=== PATIENT | male | born 1935 | race Caucasian/White ===

== ENCOUNTER 2017-10-12 06:58 | Day surgery (SDC) | payer MEDICARE, BC ==
[~2017-10-12] VITALS: Ht 188 cm; Wt 119.6 kg
[~2017-10-12 06:58] MED LIST: ALEVE 220MG220 MG PO; ASPIRIN E.C. 8181 MG PO; CELEBREX 200MG200 MG PO; CLARITIN 1010 MG/TAB PO; CO Q-1050 MG PO; COUMADIN4 MG PO; CRESTOR 10MG10 MG PO; DULCOLAX S10 MG/SUPP RC; LOPID 600M600 MG/TAB PO; LOPRESSOR 225 MG/TAB PO; MILK OF MA400 MG/5 M PO; NORCO 325 MG-7.1 TAB PO; OMEGA 31000 MG PO; SENOKOT8.6 MG PO; TYLENOL EXTRA500 M1 PO; ULTRAM 50MG TAB50 MG PO
[2017-10-12 07:20] VITALS: BP 146/83; PULSE 65; TEMP 97.1
[2017-10-12] MEDS ORDERED: ASPIRIN 81M81 MG/TA2 PO (07:47)
[2017-10-12] MEDS ORDERED: FLOMAX 0.40.4 MG/CAP PO (07:48)
[2017-10-12] MEDS ORDERED: THE MEDICINE S200 M2 PO (07:48)
[2017-10-12 07:49] LABS: CALCIUM 9.8 mg/dL (8.4-10.2); CREATININE, serum 1.68 mg/dL (0.66-1.25); POTASSIUM 4.3 mmol/L (3.4-5.0)
[2017-10-12] MEDS ORDERED: PERCOCET 325 MG1 TA2 PO (07:49)
[2017-10-12] MEDS ORDERED: ALEVE 220MG220 MG PO (07:49)
[2017-10-12] MEDS ORDERED: INVOKAMET4 PO (07:50)
[2017-10-12] MEDS ORDERED: GLUCOPHAGE500 MG/TAB PO (07:50)
[2017-10-12 11:45] VITALS: BP 101/55; PULSE 66; TEMP 97.5
[2017-10-12 12:00] VITALS: BP 110/61; PULSE 66
[2017-10-12 12:15] VITALS: BP 117/67; PULSE 63
== END 2017-10-12 12:50 | disposition home or self-care (01) ==
LOC: SDCO 06:58
PROVIDERS: Nurse Anesthetist, Certified Registered
DX: N20.1 Calculus of ureter (principal); E11.9 Type 2 diabetes mellitus without complications; K21.9 Gastro-esophageal reflux disease without esophagitis; E78.5 Hyperlipidemia, unspecified; I10 Essential (primary) hypertension; I25.2 Old myocardial infarction; I25.10 Atherosclerotic heart disease of native coronary artery without angina pectoris; M19.90 Unspecified osteoarthritis, unspecified site; Z95.1 Presence of aortocoronary bypass graft; Z79.84 Long term (current) use of oral hypoglycemic drugs; Z96.642 Presence of left artificial hip joint; Z96.651 Presence of right artificial knee joint; Z82.49 Family history of ischemic heart disease and other diseases of the circulatory system
CPT/HCPCS: C1726; C1769; C2617; J0690; J2405; J2704; J3010; J7120; Q9967

== ENCOUNTER 2018-03-31 11:46 | Inpatient (IN) | payer MEDICARE, BC ==
[~2018-03-31] VITALS: Ht 188 cm; Wt 117.2 kg
[~2018-03-31 11:46] MED LIST changes: +ASPIRIN 81M81 MG/TA2 PO; +FLOMAX 0.40.4 MG/CAP PO; +GLUCOPHAGE500 MG/TAB PO; +INVOKAMET4 PO; +PERCOCET 325 MG1 TA2 PO; +THE MEDICINE S200 M2 PO
[2018-03-31 15:57] VITALS: BP 167/70; PULSE 46; TEMP 97.7
[2018-03-31] MEDS ORDERED: LIPITOR 80MG80 MG PO (16:36)
[2018-03-31] MEDS ORDERED: PLAVIX 75MG TAB75 MG PO (16:37)
[2018-03-31 18:00] VITALS: BP 167/70; PULSE 46; TEMP 97.7
[2018-04-01 06:22] VITALS: BP 170/85; PULSE 80; TEMP 98.4
[2018-04-01 17:21] VITALS: BP 171/92; PULSE 55; TEMP 98.4
[2018-04-02 06:08] VITALS: BP 152/88; PULSE 88; TEMP 98.6
[2018-04-02 14:56] VITALS: BP 164/94; PULSE 62; TEMP 97.2
[2018-04-03 06:00] VITALS: BP 136/87; PULSE 58; TEMP 98.4
[2018-04-03 15:32] VITALS: BP 137/86; PULSE 66; TEMP 97.6
[2018-04-04 06:24] VITALS: BP 161/83; PULSE 67; TEMP 97.8
[2018-04-04 17:59] VITALS: BP 150/76; PULSE 65; TEMP 97.5
[2018-04-05 03:51] VITALS: BP 115/56; PULSE 62; TEMP 97.6
[2018-04-05 15:32] VITALS: BP 135/59; PULSE 72; TEMP 97.2
[2018-04-06 05:34] VITALS: BP 135/76; PULSE 60; TEMP 97.7
[2018-04-06 18:00] VITALS: BP 165/78; PULSE 57; TEMP 97.5
[2018-04-07 05:20] VITALS: BP 127/75; PULSE 80; TEMP 98.4
[2018-04-07 13:29] VITALS: BP 136/80; PULSE 73; TEMP 94.4
[2018-04-07 15:30] VITALS: BP 133/65; PULSE 56; TEMP 97.2
[2018-04-08 04:15] VITALS: BP 149/87; PULSE 50; TEMP 97.2
[2018-04-08 16:19] VITALS: BP 178/87; PULSE 53; TEMP 97.3
[2018-04-09 06:00] VITALS: BP 153/75; PULSE 56; TEMP 97.7
[2018-04-09 17:19] VITALS: BP 131/72; PULSE 63; TEMP 97.5
[2018-04-10 05:37] VITALS: BP 155/98; PULSE 53; TEMP 98.2
[2018-04-10 09:00] VITALS: BP 148/84; PULSE 88; TEMP 97.7
[2018-04-10 16:27] VITALS: BP 141/79; PULSE 57; TEMP 97
[2018-04-11 06:00] VITALS: BP 152/79; PULSE 51; TEMP 97.4
[2018-04-11 15:35] VITALS: BP 127/70; PULSE 56; TEMP 97.8
[2018-04-12 06:00] VITALS: BP 152/61; PULSE 51; TEMP 97.9
[2018-04-12] MEDS ORDERED: TYLENOL 325MG325 MG PO (08:39)
== END 2018-04-12 14:55 | disposition home or self-care (01) | DRG 57 ==
DX: I69.351 Hemiplegia and hemiparesis following cerebral infarction affecting right dominant side (principal); I69.320 Aphasia following cerebral infarction; I69.392 Facial weakness following cerebral infarction; I69.322 Dysarthria following cerebral infarction; I10 Essential (primary) hypertension; E11.9 Type 2 diabetes mellitus without complications; Z95.1 Presence of aortocoronary bypass graft; I25.10 Atherosclerotic heart disease of native coronary artery without angina pectoris; I69.391 Dysphagia following cerebral infarction; R13.10 Dysphagia, unspecified
CPT/HCPCS: 99223-AI; 99232-AI; 99239; J1650; J1815